=== PATIENT | male | born 1955 | race Caucasian/White ===

== ENCOUNTER 2025-01-02 18:41 | Emergency (ER) | payer MEDICARE, BC, SELFPAY ==
[2025-01-02 18:53] VITALS: BP 110/80
--- NOTE | 2025-01-02 19:21 | ED.MUSCINJ ---
HPI-Injury
General
Chief Complaint: Musculo-Skeletal Complaint
Source: patient
Exam Limitations: none
Time Seen by Provider: 01/02/25 19:10
Nursing documentation reviewed up to this point in time: agreed with
History of Present Illness-Injury
Is this injury a work related problem?: No
Is pt an associate of [facility]/[place]?: No
Initial Injury comments:
69-year-old male flyow-tepc-riqykyao circular saw injury to the left hand just prior to arrival he is unsure of his tetanus shot status he has a laceration on the palmar surface of all 4 of his fingers not including his thumb had a hard time flexing
his ring finger
Review of Systems
Review of Systems
All Other Systems: Not applicable
Neurological: Denies numbness
Hematologic/Lymphatic: Reports bleeding (From the wound)
Phy Exam
Physical Exam
Physical Exam:
Physical Exam
General: no apparent distress, not acutely ill
Neck: No jaundice
Heart: s1/s2 regular rate and rhythm, no murmur. equal radial pulses.
Lungs: no acute respiratory distress. clear bilaterally
Neuro: alert and oriented. no focal neurological deficits
Skin: no rash
Psychiatric: well kept. interactive and cooperative
Extremities: Palmar surface of the right hand 1 cm laceration at the base of the index finger, 1 cm laceration base of the long finger 2 cm laceration the PIP joint maceration of the ring finger with decreased flexion 1 cm
laceration at the PIP joint of the small finger
Injury Course
Orders/Labs/Results
Orders:
Orders
01/02/25 19:10
HYDROmorphone [Dilaudid] 1 mg IV NOW STA
Hand, Left 3 View [CR Hand - Left Min 3 Views] Urgent
Comment:
Reason For Exam: truam
01/02/25 19:21
Tetanus/Diphth/Acelpertussis [Adacel] 0.5 ml IM .ONCE ONE
01/02/25 19:26
CeFAZolin 1 GRAM [Ancef] 1 gram in 5 ml IV NOW
01/02/25 20:05
0.9% Sodium Chloride 500 ml [Nss] 500 ml IV BOLUS
Ondansetron Injectable [Zofran] 4 mg IV NOW STA
01/02/25 20:55
Splints/Slings/Crut- Treatment ONCE
Procedures
Laceration Closure
Left hand:
Status of Wound: clean
Size of Wound in cm: 6
Description of Wound Edges: sharp
Preparation: cleaned with saline
Anesthesia: 1% Lidocaine and Marcaine
Revision/Debridement: routine- no revision
Wound exploration: explored to base- no FB
Type of Closure: single layer closure
Skin Closure Material: 4-0 nylon
Number of sutures: 10
Additional information:
Digital block, copious irrigation, number ten 4-0 nylon sutures #4 somewhat ragged linear lacerations at the base of the digits closed loosely
Wounds dressed splinted
Digital Block
Location of injection for digital block: base of digit
Indiction for Digital Block: surgical repair
Type of anesthesia: Marcaine
Complications: none- good anesthesia
MDM/Problems Addressed
Differential Diagnosis Includes:
Laceration fracture tendon injury no signs of vascular compromise
MDM/Problems Addressed:
Saw the hand
*Radiology
Radiology exam reviewed: preliminary read by ED provider
*Pulse Oximetry
Patient hypoxic: no
*Critical Care Note
Total Time (30-74mins, 75-104mins- exclusive of procedures): Not Applicable
Update Note
Update Note:
Update suspect tendon injury, of the ring possibly small finger, x-ray noted reviewed with patient on-call orthopedic hand doctor will close the skin and follow-up in the office splint
ED Attending Note
-
Portions of this chart may have been created with voice recognition software.� Occasional wrong word or��sound alike� substitutions may have occurred due to the inherent limitations of voice recognition software.
Discharge Plan
Departure
Patient Disposition: Home (Routine Discharge)
Date of Disposition: 01/02/25
Time of Disposition: 20:57
Patient with high blood pressure during this ER visit?: No
Condition: Good
Discharge Problem:
Hand injuries
Instructions: Splint Care, Common Finger Injuries ED, Laceration
Prescriptions:
New
ibuprofen 600 mg tablet
600 mg PO Q6H PRN (Reason: Pain) Qty: 30 0RF
cephalexin 500 mg capsule
500 mg PO Q6H 7 Days Qty: 28 0RF
No Action
acetaminophen 325 MG tablet
650 mg PO Q6HPRN PRN (Reason: PAIN OR FEVER > OR = 101) Qty: 0 0RF
dorzolamide 1 DROP drops
1 drp RIGHT EYE BID
Latanoprost 0.005% Eye Drop
1 drp RIGHT EYE HS
Referrals:
Vivek Yap DO [Family Provider, Family Practice]
Jc Ames MD [Active, Orthopedics] - Next open appointment
Activity Restrictions/Additional Instructions:
Keep hand covered you splint
Call [facility] orthopedics tomorrow
Tell the answering staff that you prefer to see Dr. Wells or one of the hand surgeons
Interventions
Interventions:
*Risk Screen - Suicide Last Done: 01/02/25 18:53
*General Assessment Last Done: 01/02/25 18:53
*Neglect/Abuse Screening Last Done: 01/02/25 19:49
*ED- Fall Risk Assessment Last Done: 01/02/25 19:49
*ED COVID-19 Vaccine History Last Done: 01/02/25 19:49
ED-Musculoskeletal Assessment Last Done: 01/02/25 19:49
Discharge Date and Time
Print Language: SURINAMESE
[2025-01-02 19:24] VITALS: BMI 28.3
[2025-01-02] MEDS: DILAUDID 1 MG IV (19:25)
[2025-01-02] MEDS: ZOFRAN 4 MG IV ×2 (20:09→21:15)
[2025-01-02] MEDS: ADACEL 0.5 ML IM (20:09)
[2025-01-02] MEDS: NSS 500 IV (20:09)
[2025-01-02] MEDS: ANCEF 5 IV (20:30)
[2025-01-02 20:48] VITALS: BP 107/76
== END 2025-01-02 21:32 | disposition home or self-care (01) ==
LOC: EMR 18:41
PROVIDERS: EMERGENCY PHYSICIAN Emergency Medicine; FAMILY PHYSICIAN Family Medicine
DX: S61.412A Laceration without foreign body of left hand, initial encounter (principal); W31.2XXA Contact with powered woodworking and forming machines, initial encounter; Z23 Encounter for immunization
CPT/HCPCS: 12002; 96374; 96375; 96376; 90471; 99284; 73130; 90715

== ENCOUNTER → 2025-01-04 13:43 | Outpatient (REF) | payer MEDICARE, BC, SELFPAY ==
[2025-01-04 14:37] LABS: Hematocrit 39.9 % (39.0-52.0); Hemoglobin 13.7 g/dL (13.0-18.0); Mean Corp Hgb Conc. 34.3 g/dL (33.0-37.0); Mean Corpuscular Hgb 34.1 pg (27.0-31.0); Mean Corpuscular Volume 99.3 fL (80.0-94.0); Mean Platelet Volume 9.6 fL (7.4-10.4); Platelet Count 236 10^3/uL (130-400); Red Blood Cell Count 4.02 10^6/uL (4.70-6.10); Red Cell Dist. Width 13.2 % (11.5-14.5); White Blood Cell Count 8.5 10^3/uL (4.8-10.8)
[2025-01-04 14:56] LABS: Blood Urea Nitrogen 14 mg/dl (9-20); Calcium 9.1 mg/dl (8.4-10.2); Carbon Dioxide 22 mmol/L (22-30); Chloride 113 mmol/L (98-107); Glucose 96 mg/dl (70-99); Potassium 4.1 mmol/L (3.5-5.1); Sodium 140 mmol/L (135-145); eGFR > 60.00
== END ==
LOC: SDSPAT 13:43
PROVIDERS: ATTENDING PHYSICIAN Orthopaedic Surgery; FAMILY PHYSICIAN Family Medicine
DX: Z01.818 Encounter for other preprocedural examination (principal)
CPT/HCPCS: 36415; 80048; 85027; 93005

== ENCOUNTER 2025-01-08 06:24 | Day surgery (SDC) | payer MEDICARE, BC, SELFPAY ==
[2025-01-04 14:05] VITALS: BMI 30.8
[2025-01-08] VITALS (9 sets, daily range): BP systolic 97–137; BP diastolic 69–84; BMI 30.8
[2025-01-08] MEDS: TYLENOL 1000 MG PO (09:27)
[2025-01-08] MEDS: CELEBREX 200 MG PO (09:27)
[2025-01-08] MEDS: NORMOSOL-R/PLASMALYTE-A 1000 IV (09:29)
== END 2025-01-08 15:15 | disposition home or self-care (01) ==
LOC: SDS 06:24
PROVIDERS: ATTENDING PHYSICIAN Orthopaedic Surgery
DX: S61.211A Laceration without foreign body of left index finger without damage to nail, initial encounter (principal); W27.0XXA Contact with workbench tool, initial encounter
CPT/HCPCS: 64831; 64832 ×3; C9250